=== PATIENT | male | born 1995 | race Caucasian/White ===

== ENCOUNTER 2017-08-02 12:39 | Day surgery (SDC) | payer OTHER ==
[2017-07-25 11:12] VITALS: BMI 29.2
[~2017-08-02 12:39] MED LIST: DEXAMETHASONE SOD PHOSPHATE 10 MG/ML 1 ML VIAL IV ONE; HYDROmorphone 1 MG/ML 1 ML SYRINGE IVP PRN; LACTATED RINGERS 1,000 ML IV SCH; LIDOCAINE 1% 20 ML VIAL (10MG/ML) FOR IV START INTRADERMA PRN; MIDAZOLAM 2 MG/2 ML VIAL IV PRN; ONDANSETRON 4 MG/2 ML VIAL IVP ONE; Pre Op ABX Message 1 EACH MISC MISCELLANE ONE; SCOPOLAMINE 1.5MG/72HR PATCH TRANSDERM ONE
[2017-08-02 13:13] VITALS: RESP 16
[2017-08-02] MEDS ORDERED: LIDOCAINE 1% 20 ML VIAL (10MG/ML) FOR IV START INTRADERMA ONE (13:24)
[2017-08-02] MEDS ORDERED: ceFAZolin 2 GM in SODIUM CHLORIDE 0.9% 100 ML IVPB STA (14:05)
[2017-08-02] MEDS ORDERED: BUPIVACAINE (PF) 0.25% 30 ML VIAL SQ ONE (14:10)
[2017-08-02] MEDS ORDERED: fentaNYL (PF) 50 MCG/ML 2 ML AMP ONE (14:14)
[2017-08-02] MEDS ORDERED: PROPOFOL 10 MG/ML 20 ML VIAL IV ONE (14:14)
[2017-08-02] MEDS ORDERED: MIDAZOLAM 2 MG/2 ML VIAL ONE (14:14)
[2017-08-02 16:33] VITALS: TEMP 97.5
[2017-08-02] MEDS ORDERED: HYDROcodone/APAP 7.5-325MG 1 EACH TAB PO ONE ×2 (18:30→18:45)
[2017-08-02 18:31] VITALS: BP 134/75; PULSE 73
--- NOTE | 2017-08-06 11:47 | OP ---
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 PROCEDURE PERFORMED: Right knee anterior cruciate ligament reconstruction with hamstring autograft. SURGEON: Dionte Shahid MD. SHORT ORDER COOK: RHETT Simental. ANESTHESIA: Spinal with sedation. ESTIMATED BLOOD LOSS: 25 mL. TOURNIQUET TIME: 56 minutes at 250 mmHg. DRAINS: None. COMPLICATIONS: None apparent. DISPOSITION: Postanesthesia care unit. INDICATIONS: Denny is a very pleasant 21-year-old male who injured his right knee a year ago June, in June of 2016 playing rugby. He has had noted instability of the knee since that time. Physical examination and MRI are consistent with a chronic rupture of the anterior cruciate ligament. I had a long discussion with him with regards to treatment options. At this point, he does wish to proceed with operative intervention. The risks were explained to the patient which include, but are not limited to, risk of infection, nerve damage, bleeding, pain, instability, deep vein thrombosis, which could lead to fatal pulmonary embolism and graft rerupture. The patient understands these risks and wished to proceed with surgical procedure. EXAMINATION UNDER ANESTHESIA: Range of motion: Right full, left full. Effusion: Right none, left none. Sander: Right increased 5 mm with soft end point. Left normal with good end point. Pivot shift: Right grade 1, left grade 0. Posterior drawer: Right normal with good end point. Left normal with good end point. Varus laxity: Right none, left none. Valgus laxity: Right none, left none. External rotation: Right normal, left normal. ARTHROSCOPIC FINDINGS: Suprapatellar pouch is normal. Medial gutter normal. Lateral gutter normal. Patella normal chondral surfaces. Trochlea normal chondral surfaces. Patellar tracking is normal. Medial femoral condyle normal chondral surfaces. Medial tibial plateau normal chondral surfaces. Medial meniscus was normal. Lateral femoral condyle normal chondral surfaces. Lateral tibial plateau normal chondral surfaces. Lateral meniscus was normal. The anterior cruciate ligament complete chronic rupture of the anterior cruciate ligament. The infrapatellar notch was devoid of any graft tissue as it had been resorbed. Posterior cruciate ligament is normal. DETAILS OF PROCEDURE: The patient identified in the preoperative holding area. Surgical site was marked by both the patient and myself. He was given 2 grams of Ancef IV for prophylactic purposes. He was then transferred to the operative suite. He was placed supine on the operating room table. A spinal anesthetic was then administered and dosed per the anesthesia department without apparent complication. A spinal was administered due to a family history of malignant hyperthermia. The anesthesia team decided this was the safest way to go forward. Conscious sedation was also administered. Examination under anesthesia was then performed of both knees. The findings were as noted above. A tourniquet was then placed high on the right upper thigh well-padded in preparation for surgery. The patient's right lower extremity was then prepped and draped in usual sterile fashion. Standard surgical pause then undertaken to ensure that we were operating on the correct site and that appropriate preoperative antibiotics have been given. All staff in the room were in agreement and we proceeded. The knee was then insufflated with 120 mL sterile saline solution. This was done to gradually distend the joint. A standard inferolateral portal was then made. The 30- degree arthroscope was introduced in the suprapatellar pouch. The arthroscopic pressure was set at 60 mmHg and maintained at that level throughout the entire case. Next utilizing an 18-gauge spinal needle, placement of the inferomedial port was made under direct visualization. A standard diagnostic arthroscopy of the knee was then performed. The findings were noted as above. He did have the notch was devoid of any anterior cruciate ligament tissue. At this point, I proceeded with harvesting of the hamstring autograft. The arthroscope equipment was removed from the knee. The leg was then exsanguinated with an Esmarch dressing. The tourniquet was then inflated to 250 mmHg. A small longitudinal incision was then made approximately 1.5 cm medial to the tibial tubercle. Dissection was carried down to the subcutaneous tissues until the sartorius tendon was identified. The sartorius was then incised using an L-shaped incision. The sartorius tendon was then retracted and the gracilis and semitendinosus tendons were identified. These tendons were then tagged with 2-0 Vicryl sutures. The tendons were then released from their insertion onto the tibia and stripped of their soft tissue attachments using a blunt technique as well as using scissors. The tendons were then harvested using a closed tendon stripper. The tendons were then taken to the back table where muscle fibers were scraped off of the tendons. The end of the tendons were then whip stitched using #2 Orthocord suture. The tendons were then double the form of 4 stranded hamstring graft. The graft diameter was measured at 8 mm. payroll human resources assistant was critical at this portion of the case as they provided adequate exposure, safely harvesting hamstring tendons. In addition, the educational/development assistant completed the graft preparation allowing for decreased operating time further enhancing the safety of the procedure. Attention was then returned to the knee. There was very minimal remnants of the ACL but what was left was debrided with an arthroscopic shaver. The Incentient ACL guide was then placed into the knee with the tip held flush against the lateral wall of the notch. The knee was then brought into full extension and the tibial guide pin drilled from the anteromedial tibia into the knee. The knee was then flexed and pin positioned arthroscopically assessed to ensure that was in the proper position. The tibial tunnel was then created using a cannulated reamer equal the size of the hamstring graft which was 8 mm. A minimal lateral notchplasty was then performed utilizing synovial shaver in a bur type fashion. The femoral origin of the anterior cruciate ligament was clearly identified. The center of the origin of the anterior cruciate ligament was then marked with a microfracture awl. This was made to give me approximately 1 to 1.5 mm back wall as well. I then made an accessary anteromedial portal. Again this was done after first localizing the placement with an 18-gauge spinal needle. The 8 mm reamer was then introduced into the notch. This was done under visualization to ensure that it would not iatrogenically damage the medial femoral condyle cartilage. The knee was then hyperflexed onto the table to approximately 120 degrees. A pin was then placed through the cannulated reamer and then was introduced into the previously placed microfracture awl nata. The pin was then taken out through the lateral femoral cortex and then out through the skin of the lateral thigh. The femoral tunnel was then drilled to approximately 20 mm. This was an 8 mm drill bit again. The cannulated drill was carefully removed and a 4.5 mm cannulated drill was then used to penetrate the lateral femoral cortex. A 0 Vicryl passing suture was then placed through the eyelet of the pin and the pin was brought out through the tunnel and soft tissues of the lateral thigh. The knee was then taken out of hyperflexion. The 0 Vicryl passing suture was then brought out through the tibial tunnel. The Biomet Toggleloc femoral fixation device was then opened. The graft was placed through the closed loop of the device. The lead sutures and fixation device were then placed through the 0-Vicryl passing suture and advanced through the tunnels and soft tissues of the lateral thigh. The device was then advanced through the tunnels and locked on the lateral femoral cortex. The closed loop was then shortened and the graft advanced to the base of the femoral tunnel. Femoral fixation was excellent. The graft was then cycled 30 times. No impingements were noted on the intercondylar roof or lateral intercondylar wall. Tibial fixation was then achieved using a bioabsorbable Intrafix screw and sheath. This was performed at 20 degrees of flexion with a posterior drawer force applied to the tibia. This resulted in excellent fixation. The arthroscope was placed back into the knee and the graft again visualized. Tension of the graft seen to be excellent. No impingement was noted. Full range of motion was noted. The Sander test was noted to be normal. At this point, the arthroscopic equipment was removed from the knee. The tibial incision was thoroughly irrigated. The tourniquet was then deflated. Total tourniquet time for the procedure was 56 minutes at 250 mmHg. I then closed the sartorius fascia with 2-0 Vicryl interrupted suture, subcutaneous tissues closed with 2-0 Vicryl interrupted suture and the skin was closed with 3-0 nylon interrupted suture. The arthroscopic portals were closed with 3-0 nylon interrupted suture. Sterile compressive dressing was then applied. The patient was placed in a hinged knee brace, locked in full extension. The patient tolerated the procedure well and was transferred to recovery room in good condition. Rehab plan routine anterior cruciate ligament reconstruction rehab protocol. MMODL / IJN: [id number] /
== END 2017-08-02 19:13 | disposition home or self-care (01) ==
LOC: OR 12:39
PROVIDERS: ATTEND Orthopaedic Surgery Sports Medicine
DX: S83.511A Sprain of anterior cruciate ligament of right knee, initial encounter (principal); X58.XXXA Exposure to other specified factors, initial encounter; Y93.63 Activity, rugby
CPT/HCPCS: 29888; C1713 ×2; J2250; J1100; J0690; J2405; J3010; J2704